=== PATIENT | female | born 1975 | race Hispanic/Latino ===

== ENCOUNTER 2021-10-12 21:21 | Emergency (ER) | payer MEDICAID, OTHER ==
[~2021-10-12] VITALS: Ht 162.6 cm; Wt 74.8 kg
[2021-10-12 22:08] LABS: APPEARANCE,URINE Clear (CLEAR); BILIRUBIN,URINE Negative (NEGATIVE); COLOR,URINE Yellow (YELLOW); GLUCOSE, URINE (UA) Negative (NEGATIVE); KETONES,URINE Negative (NEGATIVE); LEUKOCYTE ESTERASE ,URINE Negative (NEGATIVE); NITRATE,URINE Negative (NEGATIVE); OCCULT BLOOD,URINE Negative (NEGATIVE); PROTEIN,URINE Negative (NEGATIVE); UROBILINOGEN,URINE 0.2 mg/dL (0.2-1.0)
[2021-10-12 22:16] LABS: BASOPHILS % (AUTO) 0.4 % (0.0-5.0); EOSINOPHILS % (AUTO) 0.8 % (0.0-8.0); HEMATOCRIT 38.6 % (36-48); MEAN CORPUSCULAR HEMOGLOBIN 28.8 pg (27.0-33.0); MEAN CORPUSCULAR HGB CONC 31.9 g/dL (32.0-36.0); MEAN CORPUSCULAR VOLUME 90.4 fL (79-99); MONOCYTES % (AUTO) 6.4 % (3.0-13.0); NEUTROPHILS % (AUTO) 76.1 % (40.0-77.0); PLATELET COUNT (AUTO) 437 K/uL (130-400); RED BLOOD CELL COUNT(AUTO) 4.27 MIL/uL (4.00-5.50); RED CELL DISTRIBUTION WIDTH 13.3 % (11.0-15.5); WHITE BLOOD COUNT (AUTO) 8.9 K/uL (4.8-10.8)
[2021-10-12 22:26] LABS: CREATININE 0.7 mg/dL (0.5-1.5); POTASSIUM 3.9 mmol/L (3.5-5.1)
[2021-10-12 22:30] LABS: ALBUMIN 3.3 g/dL (3.5-5.0); BILIRUBIN,TOTAL 0.4 mg/dL (0.2-1.0); TOTAL PROTEIN, SERUM 8.6 g/dL (6.0-8.3)
[2021-10-13] MEDS ORDERED: LIDOCAINE 5% TOPICAL PATCH TP ONE (03:00)
[2021-10-13] MEDS ORDERED: MORPHINE 4 MG SYG IV ONE (03:00)
[2021-10-13 04:13] VITALS: BP 93/78
[2021-10-13] MEDS ORDERED: PRED20TA3 PO (06:24)
[2021-10-13] MEDS ORDERED: LIDOP TD (06:24)
[2021-10-13] MEDS ORDERED: DEXAMETHASONE SOD PHOSPHATE 4 MG/ML 1ML VIAL IV ONE (06:30)
[2021-10-13] MEDS ORDERED: DEXAMETHASONE SOD PHOSPHATE 4 MG/ML 1ML VIAL ONE ×2 (06:39→06:40)
== END 2021-10-13 06:49 | disposition home or self-care (01) ==
LOC: EDH 21:21
DX: M54.6 Pain in thoracic spine (principal); J44.9 Chronic obstructive pulmonary disease, unspecified; R10.9 Unspecified abdominal pain; Z20.822 Contact with and (suspected) exposure to COVID-19
CPT/HCPCS: 36415 ×2; 71045; 71275; 74177; 80053; 81003; 81025; 82150; 83690; 83735; 85025; 85378; 87635; 96374; 96375; 99285; C9803; J1100 ×2; J2270